=== PATIENT | male | born 1985 | race Caucasian/White ===

== ENCOUNTER 2016-09-10 16:33 | Emergency (ER) | payer OTHER ==
[~2016-09-10] VITALS: Ht 165.1 cm; Wt 97.5 kg
[~2016-09-10 16:33] MED LIST: ALBUTEROL0.09 MG/A2 IH; AMOXICILLIN500 M3 PO; AMOXICILLIN500 MG PO; AMOXIL500 MG PO; ANAPROX DS550 MG PO; AUGMENTIN 875 M1 TAB PO; AUGMENTIN 875875 MG PO; CIPRO500 MG PO; CIPRODEX 0.3%-7.5 ML OT; CLARITIN10 MG PO; CLINDAMYCIN HC300 MG PO; CORTISPORIN SUS10 ML OT; DILANTIN PO; DOXYCYCLINE MO100 MG PO; FLEXERIL5 MG PO; FLOMAX0.4 MG PO; HYDROCODONE BIT1 T11 PO; IBU-8800 MG PO; MEDROL DOSEPAK4 MG PO; MOTRIN800 MG PO; Motrin,Rufen800 MG PO; NORCO 10-325 T1 EACH PO; NORCO 5-325 TA1 EACH PO; OTOGESIC 15 ML15 ML OT; PENICILLIN VK500 MG PO; PENICILLIN-VK500 MG PO; PERCOCET 325 MG1 TA2 PO; PHENERGAN W/CO120 ML PO; PROTONIX40 MG PO; TRAMADOL HCL50 MG PO; TRIMOX500 MG PO; ULTRAM50 MG PO; VICODIN 5/500 505 MG PO; VICODIN ES 7501 TAB PO; Vicodin 5/500 505 MG PO; ZANTAC 150150 MG PO; ZOFRAN ODT4 MG SL
[2016-09-10 16:44] VITALS: BP 147/91
[2016-09-11] MEDS ORDERED: KEFLEX500 M1 PO (09:59)
== END 2016-09-10 17:25 | disposition home or self-care (01) ==
LOC: ED 16:33
DX: S61.512A Laceration without foreign body of left wrist, initial encounter (principal); Z79.899 Other long term (current) drug therapy; Z29.12 Encounter for prophylactic antivenin; W18.39XA Other fall on same level, initial encounter; Y93.89 Activity, other specified; Y92.9 Unspecified place or not applicable; Y99.9 Unspecified external cause status

== ENCOUNTER 2016-09-12 21:12 | Emergency (ER) | payer OTHER ==
[~2016-09-12] VITALS: Ht 165.1 cm; Wt 97.5 kg
[~2016-09-12 21:12] MED LIST changes: +KEFLEX500 M1 PO
[2016-09-12 22:17] VITALS: BP 150/95
[2016-09-12] MEDS ORDERED: BACTRIM DS 8001 TA1 PO (22:54)
== END 2016-09-13 00:43 | disposition home or self-care (01) ==
LOC: ED 21:12
DX: Z48.01 Encounter for change or removal of surgical wound dressing (principal)

== ENCOUNTER 2021-04-08 10:49 | Emergency (ER) | payer OTHER ==
[~2021-04-08] VITALS: Ht 170.1 cm; Wt 102.5 kg
[~2021-04-08 10:49] MED LIST changes: +BACTRIM DS 8001 TA1 PO
[2021-04-08 11:02] VITALS: BP 169/120
[2021-04-08] MEDS ORDERED: PEPCID20 MG PO (11:20)
[2021-04-08] MEDS ORDERED: MEDROL DOSEPAK4 MG PO (11:20)
[2021-04-08] MEDS ORDERED: CLARITIN10 MG PO (11:20)
== END 2021-04-08 11:23 | disposition home or self-care (01) ==
LOC: ED 10:49
DX: T63.441A Toxic effect of venom of bees, accidental (unintentional), initial encounter (principal); R22.0 Localized swelling, mass and lump, head; F17.220 Nicotine dependence, chewing tobacco, uncomplicated; Z79.2 Long term (current) use of antibiotics; Z79.899 Other long term (current) drug therapy; Z87.442 Personal history of urinary calculi; Z96.22 Myringotomy tube(s) status; Y92.89 Other specified places as the place of occurrence of the external cause

== ENCOUNTER 2024-09-27 21:41 | Emergency (ER) | payer OTHER ==
[~2024-09-27] VITALS: Ht 167.6 cm; Wt 99.8 kg
[~2024-09-27 21:41] MED LIST changes: +PEPCID20 MG PO
[2024-09-27 22:11] VITALS: BP 189/120
[2024-09-27] MEDS ORDERED: HYDROCODONE-AC1 EAC1 PO (22:55)
== END 2024-09-27 22:50 | disposition home or self-care (01) ==
LOC: ED 21:41
DX: S62.396A Other fracture of fifth metacarpal bone, right hand, initial encounter for closed fracture (principal); Z87.442 Personal history of urinary calculi; Z90.89 Acquired absence of other organs; Z98.890 Other specified postprocedural states; W22.01XA Walked into wall, initial encounter; Y93.89 Activity, other specified; Y92.89 Other specified places as the place of occurrence of the external cause; Y99.8 Other external cause status

== ENCOUNTER → 2024-10-06 | Outpatient (CLI) | payer OTHER ==
[~2024-10-06] MED LIST changes: +HYDROCODONE-AC1 EAC1 PO
== END | disposition home or self-care (01) ==
LOC: ORTHO 03:30
PROVIDERS: ATTEND Orthopaedic Surgery
DX: S62.356D Nondisplaced fracture of shaft of fifth metacarpal bone, right hand, subsequent encounter for fracture with routine healing (principal); M79.89 Other specified soft tissue disorders; X58.XXXD Exposure to other specified factors, subsequent encounter